=== PATIENT | male | born 2000 | race Hispanic/Latino ===

== ENCOUNTER 2022-01-20 13:49 | Emergency (ER) | payer OTHER | END 2022-01-20 16:08 | disposition home or self-care (01) | LOC: ERS 13:49 | DX: M25.571 Pain in right ankle and joints of right foot (principal) ==

== ENCOUNTER 2022-07-12 17:04 | Emergency (ER) | payer OTHER | END 2022-07-12 18:30 | disposition home or self-care (01) | LOC: ERS 17:04 | DX: S93.401A Sprain of unspecified ligament of right ankle, initial encounter (principal); X50.9XXA Other and unspecified overexertion or strenuous movements or postures, initial encounter ==